=== PATIENT | male | born 1970 | race African-American/Black ===

== ENCOUNTER 2018-01-22 11:31 | Emergency (ER) | payer BC ==
[~2018-01-22] VITALS: Ht 180.3 cm; Wt 94.3 kg
[~2018-01-22 11:31] MED LIST: ADULT LOW DOSE81 MG PO; ANTACID325 MG; APAP/CODEINE ELI5 M1 OR; ASPIRIN EC81 M1 PO; ASPIRIN81 M2 PO; BACTRIM 400-801 EACH PO; CALCIUM OYSTER500 MG PO; COUMADIN 5 MG TA5 M1 PO; DILTIAZEM 24HR240 MG PO; DOXYCYCLINE 10100 MG PO; ENDOCET 7.5-321 EACH PO; ENOXAPARIN80 MG/0.8 SQ; HYDRALAZINE 10M10 MG PO; HYDRALAZINE 2525 M1 PO; HYDRALAZINE 5050 M1 PO; IBUPROFEN 600600 M1 PO; IMURAN 50MG TAB50 M1 PO; IRON159 MG PO; IRON325 PO; K-PHOS NEUTRAL250 MG PO; LISINOPRIL30 MG; LISINOPRIL30 MG PO; LOPRESSOR25 PO; MEDROLDOSEPACK PO; METOPROLOL SUCC25 M1 PO; METOPROLOL SUCC50 MG PO; MYFORTIC360 MG PO; NORCO 5-325 TA1 EACH PO; NORFLEX100 MG PO; PERCOCET 5-3251 EACH PO; PREDNISONE 20 M20 MG PO; PROGRAF5 MG PO; PROTONIX40 M1 PO; PROTONIX40 M2 PO; PROZAC 20 MG20 M1 PO; PYRIDIUM100 MG PO; SODIUM BICARBO650 M3 PO; TIZANIDINE HCL4 MG PO; TOPROL XL25 MG PO; VALCYTE450 MG PO; ZESTRIL30 MG PO; ZOCOR40 MG PO; ZPAK PO
[2018-01-22] MEDS ORDERED: PREDNISONE 20 M20 M1 PO (11:51)
[2018-01-22] MEDS ORDERED: NORCO 10-325 T1 EACH PO (11:51)
== END 2018-01-22 12:13 | disposition home or self-care (01) ==
LOC: ER 11:31
DX: M51.26 Other intervertebral disc displacement, lumbar region (principal); I10 Essential (primary) hypertension; Z96.643 Presence of artificial hip joint, bilateral

== ENCOUNTER 2019-06-19 12:09 | Emergency (ER) | payer BC ==
[~2019-06-19] VITALS: Ht 180.3 cm; Wt 97.5 kg
[~2019-06-19 12:09] MED LIST changes: +NORCO 10-325 T1 EACH PO; +PREDNISONE 20 M20 M1 PO
[2019-06-19] MEDS ORDERED: ZANTAC 150MG T150 M1 PO (12:20)
[2019-06-19 13:13] LABS: URINE BILIRUBIN NEGATIVE (Negative); URINE BLOOD NEGATIVE (Negative); URINE CLARITY CLEAR; URINE COLOR YELLOW; URINE GLUCOSE-RANDOM* NEGATIVE (Negative); URINE KETONES NEGATIVE (Negative); URINE LEUKOCYTES-REFLEX NEGATIVE (Negative); URINE NITRITE-REFLEX NEGATIVE (Negative); URINE PROTEIN (DIPSTICK) NEGATIVE (Negative); URINE UROBILINOGEN 0.2 E.U./dl (0.2-1.0)
[2019-06-19] MEDS ORDERED: FLAGYL500 M1 PO (13:17)
[2019-06-19 13:45] VITALS: BP 150/94
== END 2019-06-19 13:46 | disposition home or self-care (01) ==
LOC: ER 12:09
PROVIDERS: Emergency Medicine
DX: Z20.2 Contact with and (suspected) exposure to infections with a predominantly sexual mode of transmission (principal); I10 Essential (primary) hypertension; Z96.643 Presence of artificial hip joint, bilateral; Z86.711 Personal history of pulmonary embolism

== ENCOUNTER 2020-05-21 10:06 | Emergency (ER) | payer BC ==
[~2020-05-21] VITALS: Ht 180.3 cm; Wt 96.6 kg
[2020-05-21 10:06] VITALS: BP 159/87
[~2020-05-21 10:06] MED LIST changes: +FLAGYL500 M1 PO; +ZANTAC 150MG T150 M1 PO
== END 2020-05-21 11:05 | disposition home or self-care (01) ==
LOC: ER 10:06
DX: Z20.89 Contact with and (suspected) exposure to other communicable diseases (principal); I10 Essential (primary) hypertension; Z79.82 Long term (current) use of aspirin; Z79.899 Other long term (current) drug therapy

== ENCOUNTER 2020-09-10 17:24 | Emergency (ER) | payer BC ==
[~2020-09-10] VITALS: Ht 180.3 cm; Wt 93.0 kg
[2020-09-10 19:20] VITALS: BP 165/105
== END 2020-09-10 19:20 | disposition home or self-care (01) ==
LOC: ER 17:24
DX: R43.8 Other disturbances of smell and taste (principal); R53.83 Other fatigue; I10 Essential (primary) hypertension; Z20.822 Contact with and (suspected) exposure to COVID-19; Z94.0 Kidney transplant status; Z96.643 Presence of artificial hip joint, bilateral; Z86.711 Personal history of pulmonary embolism; Z79.899 Other long term (current) drug therapy; Z79.82 Long term (current) use of aspirin

== ENCOUNTER 2020-12-20 22:12 | Emergency (ER) | payer BC ==
[~2020-12-20] VITALS: Ht 182.9 cm; Wt 97.5 kg
[2020-12-20 22:39] LABS: ABSOLUTE NEUTROPHILS 3.3 thou/uL (1.4-8.2); BASOPHILS 0.4 % (0.0-2.0); EOSINOPHILS 12.1 % (0.0-3.0); HEMATOCRIT 42.5 % (42.0-52.0); HEMOGLOBIN 14.4 gm/dL (14.0-18.0); MCH 30.8 pg (26.0-34.0); MCV 90.8 fL (80.0-100.0); MONOCYTES 11.8 % (1.0-8.0); PLATELET COUNT 236 thou/uL (150-400); POLYS 56.7 % (36.0-66.0); RBC 4.68 mil/uL (4.50-6.00); RDW 14.1 % (10.5-14.5); WBC 5.9 thou/uL (4.0-11.0)
[2020-12-20 22:48] LABS: CALCIUM 9.5 mg/dL (8.5-10.1); CREATININE 1.3 mg/dL (0.7-1.3); POTASSIUM 3.9 mmol/L (3.5-5.1)
[2020-12-20 22:54] LABS: TOTAL BILIRUBIN 1.3 mg/dL (0.2-1.0); TOTAL PROTEIN 7.3 g/dL (6.4-8.2)
[2020-12-20] MEDS ORDERED: ZOFRAN ODT4 MG PO (23:25)
[2020-12-20 23:54] VITALS: BP 148/88
== END 2020-12-20 23:56 | disposition home or self-care (01) ==
LOC: ER 22:12
PROVIDERS: Emergency Medicine
DX: R11.2 Nausea with vomiting, unspecified (principal); R19.7 Diarrhea, unspecified; R10.84 Generalized abdominal pain; I10 Essential (primary) hypertension; Z79.899 Other long term (current) drug therapy; Z79.82 Long term (current) use of aspirin; Z94.0 Kidney transplant status; Z86.711 Personal history of pulmonary embolism